=== PATIENT | male | born 1985 | race African-American/Black ===

== ENCOUNTER 2017-10-30 23:37 | Inpatient (IN) | payer MEDICAID ==
[~2017-10-30] VITALS: Ht 177.8 cm; Wt 76.8 kg
[2017-10-30 23:41] VITALS: BP 116/75
[2017-10-31] VITALS (7 sets, daily range): BP systolic 82–120; BP diastolic 42–80
[2017-10-31 01:57] LABS: BASO # 0.1 10*3/uL (0.0-0.1); BASO % 0.6 % (0.0-1.0); EOS # 0.2 10*3/uL (0.0-0.4); EOS % 1.4 % (1.0-4.0); HEMATOCRIT 37.4 % (42.0-52.0); HEMOGLOBIN 12.6 g/dl (14.0-18.0); LYMPH # 1.9 10*3/uL (1.3-4.4); LYMPH % 12.7 % (27.0-41.0); MEAN CELL VOLUME 93.7 fl (80.0-94.0); MEAN CORPUSCULAR HGB 31.6 pg (27.0-31.0); MEAN CORPUSCULAR HGB CONC 33.7 g/dl (33.0-37.0); MEAN PLATELET VOLUME 9.8 fl (9.6-12.3); MONO # 1.2 10*3/uL (0.1-1.0); MONO % 8.3 % (3.0-9.0); NEUT # 11.3 10*3/uL (2.3-7.9); NEUT % 76.5 % (47.0-73.0); PLATELET COUNT AUTOMATED 381 10*3/uL (130-400); RED BLOOD COUNT 3.99 10*6/uL (4.50-5.90); RED CELL DISTRI WIDTH 12.7 % (0-14.5); WHITE BLOOD COUNT 14.8 10*3/uL (4.8-10.8)
[2017-10-31 02:13] LABS: ALBUMIN 3.5 gm/dl (3.1-4.5); ALKALINE PHOSPHATASE 51 U/L (45-117); BUN 22 mg/dl (7-24); CHLORIDE 107 mmol/L (98-107); CREATININE 1.06 mg/dL (0.70-1.30); SGOT/AST 18 IU/L (3-35); SGPT/ALT 23 U/L (12-78); SODIUM 139 mmol/L (136-145); TOTAL PROTEIN 8.8 gm/dL (6.4-8.2)
[2017-10-31 07:14] LABS: BASO # 0.1 10*3/uL (0.0-0.1); BASO % 0.6 % (0.0-1.0); EOS # 0.2 10*3/uL (0.0-0.4); HEMATOCRIT 34.3 % (42.0-52.0); HEMOGLOBIN 11.4 g/dl (14.0-18.0); LYMPH % 17.4 % (27.0-41.0); MEAN CORPUSCULAR HGB 31.6 pg (27.0-31.0); MEAN CORPUSCULAR HGB CONC 33.2 g/dl (33.0-37.0); MEAN PLATELET VOLUME 10.2 fl (9.6-12.3); MONO # 1.3 10*3/uL (0.1-1.0); MONO % 11.8 % (3.0-9.0); NEUT # 7.7 10*3/uL (2.3-7.9); NEUT % 67.9 % (47.0-73.0); PLATELET COUNT AUTOMATED 339 10*3/uL (130-400); RED BLOOD COUNT 3.61 10*6/uL (4.50-5.90); RED CELL DISTRI WIDTH 12.7 % (0-14.5); WHITE BLOOD COUNT 11.3 10*3/uL (4.8-10.8)
[2017-10-31 07:30] LABS: BUN 21 mg/dl (7-24); CHLORIDE 107 mmol/L (98-107); CHOLESTEROL 116 mg/dL (<200); HDL CHOLESTEROL 41 mg/dl (40-60); LDL CHOLESTEROL 67 mg/dL (9-159); PHOSPHOROUS 3.3 mg/dL (2.5-4.9); SODIUM 139 mmol/L (136-145); TRIGLYCERIDES 42 mg/dl (<150); VLDL CHOLESTEROL 8 mg/dL (6-40)
[2017-10-31 07:37] LABS: THYROID STIM HORMONE (HS) 0.952 uIU/ml (0.358-4.75)
[2017-10-31] MEDS ORDERED: ALPRAZOLAM2 MG PO (07:41)
[2017-10-31] MEDS ORDERED: VENTOLIN 02.5 MG/3 M INH (07:41)
[2017-10-31] MEDS ORDERED: ABILIFY2 MG PO (07:42)
[2017-10-31] MEDS ORDERED: OXYCODONE HCL E30 MG PO (07:43)
[2017-10-31] MEDS ORDERED: CARAFATE1 G1 PO (07:43)
[2017-10-31] MEDS ORDERED: PROTONIX40 MG PO (07:43)
[2017-10-31] MEDS ORDERED: TOPAMAX200 MG PO (07:44)
[2017-10-31 07:46] LABS: ACT PARTIAL THROMBO TIME 26.4 SECONDS (20.8-31.5); INTERNATIONAL NORM RATIO 0.9 (2.0-3.5)
[2017-10-31 08:05] LABS: VITAMIN D, 25-HYDROXY 13.1 ng/mL (30-100)
[2017-10-31] MEDS ORDERED: ROXICODONE30 MG PO (11:21)
[2017-11-01] VITALS: BP 102/47
[2017-11-01 06:26] LABS: BASO # 0.1 10*3/uL (0.0-0.1); BASO % 0.9 % (0.0-1.0); EOS # 0.2 10*3/uL (0.0-0.4); EOS % 2.9 % (1.0-4.0); HEMATOCRIT 37.7 % (42.0-52.0); HEMOGLOBIN 12.4 g/dl (14.0-18.0); LYMPH # 1.6 10*3/uL (1.3-4.4); LYMPH % 22.7 % (27.0-41.0); MEAN CELL VOLUME 95.2 fl (80.0-94.0); MEAN CORPUSCULAR HGB 31.3 pg (27.0-31.0); MEAN CORPUSCULAR HGB CONC 32.9 g/dl (33.0-37.0); MEAN PLATELET VOLUME 9.9 fl (9.6-12.3); MONO # 0.7 10*3/uL (0.1-1.0); MONO % 9.9 % (3.0-9.0); NEUT # 4.4 10*3/uL (2.3-7.9); NEUT % 63.2 % (47.0-73.0); PLATELET COUNT AUTOMATED 338 10*3/uL (130-400); RED BLOOD COUNT 3.96 10*6/uL (4.50-5.90); RED CELL DISTRI WIDTH 12.8 % (0-14.5); WHITE BLOOD COUNT 6.9 10*3/uL (4.8-10.8)
[2017-11-01 06:53] LABS: ALBUMIN 3.2 gm/dl (3.1-4.5); ALKALINE PHOSPHATASE 40 U/L (45-117); BUN 18 mg/dl (7-24); CHLORIDE 107 mmol/L (98-107); CREATININE 1.18 mg/dL (0.70-1.30); POTASSIUM 3.7 mmol/L (3.5-5.1); SGOT/AST 11 IU/L (3-35); SGPT/ALT 24 U/L (12-78); SODIUM 138 mmol/L (136-145); TOTAL PROTEIN 8.8 gm/dL (6.4-8.2)
[2017-11-01 08:00] VITALS: BP 116/61
[2017-11-01 12:00] VITALS: BP 118/63
[2017-11-01 12:07] LABS: HEPATITIS B SURFACE AG Negative (Negative); HEPATITIS C VIRUS ANTIBODY 0.2 s/co (0.0-0.9); HIV 1+2 AB + HIV1 P24 AG Non Reactive (Non Reactive)
[2017-11-01 16:00] VITALS: BP 106/53
[2017-11-01 20:00] VITALS: BP 116/58
[2017-11-02] VITALS: BP 90/56
[2017-11-02 07:02] LABS: BASO # 0.1 10*3/uL (0.0-0.1); EOS # 0.2 10*3/uL (0.0-0.4); HEMOGLOBIN 12.2 g/dl (14.0-18.0); LYMPH # 1.6 10*3/uL (1.3-4.4); LYMPH % 31.1 % (27.0-41.0); MEAN CELL VOLUME 94.4 fl (80.0-94.0); MEAN CORPUSCULAR HGB 31.1 pg (27.0-31.0); MEAN PLATELET VOLUME 9.3 fl (9.6-12.3); MONO # 0.6 10*3/uL (0.1-1.0); MONO % 11.7 % (3.0-9.0); NEUT # 2.7 10*3/uL (2.3-7.9); NEUT % 51.8 % (47.0-73.0); PLATELET COUNT AUTOMATED 353 10*3/uL (130-400); RED BLOOD COUNT 3.92 10*6/uL (4.50-5.90); RED CELL DISTRI WIDTH 12.9 % (0-14.5); WHITE BLOOD COUNT 5.2 10*3/uL (4.8-10.8)
[2017-11-02 08:00] VITALS: BP 119/65
[2017-11-02] MEDS ORDERED: VITAMIN D-32000 UNIT PO (14:09)
[2017-11-02] MEDS ORDERED: ZYVOX600 MG PO (14:09)
[2017-11-02] MEDS ORDERED: DULOXETINE HCL30 MG PO (14:09)
[2017-11-02] MEDS ORDERED: OXYCONTIN10 M1 PO (14:11)
[2017-11-02] MEDS ORDERED: OXYCODONE HCL5 MG PO (14:11)
== END 2017-11-02 15:03 | disposition home or self-care (01) | DRG 603 ==
LOC: ED 23:37 → EDHOLD 10-31 02:34 → 5E 10-31 02:34
PROVIDERS: Internal Medicine; Internal Medicine Nephrology; Physician Assistant; Student in an Organized Health Care Education/Training Program
DX: L03.115 Cellulitis of right lower limb (principal); L97.819 Non-pressure chronic ulcer of other part of right lower leg with unspecified severity; L97.829 Non-pressure chronic ulcer of other part of left lower leg with unspecified severity; L03.116 Cellulitis of left lower limb; D64.9 Anemia, unspecified; D72.810 Lymphocytopenia; D72.829 Elevated white blood cell count, unspecified; E66.3 Overweight; F12.10 Cannabis abuse, uncomplicated; F41.9 Anxiety disorder, unspecified; G89.29 Other chronic pain; Z72.0 Tobacco use; Z79.51 Long term (current) use of inhaled steroids; Z71.6 Tobacco abuse counseling; Z87.19 Personal history of other diseases of the digestive system; Z90.89 Acquired absence of other organs; Z88.1 Allergy status to other antibiotic agents; Z88.2 Allergy status to sulfonamides; Z88.8 Allergy status to other drugs, medicaments and biological substances; Z91.018 Allergy to other foods; Z79.899 Other long term (current) drug therapy; Z68.24 Body mass index [BMI] 24.0-24.9, adult

== ENCOUNTER → 2017-11-03 | Outpatient (CLI) | payer MEDICAID ==
[~2017-11-03] MED LIST: ABILIFY2 MG PO; ALPRAZOLAM2 MG PO; Bactroban Oint22 GM T; CARAFATE1 G1 PO; DULOXETINE HCL30 MG PO; OXYCODONE HCL E30 MG PO; OXYCODONE HCL5 MG PO; OXYCONTIN10 M1 PO; PROTONIX40 MG PO; ROXICODONE30 MG PO; TOPAMAX200 MG PO; VENTOLIN 02.5 MG/3 M INH; VITAMIN D-32000 UNIT PO; ZYVOX600 MG PO
[2017-11-04 08:12] LABS: COMPLEMENT C4 001834 34 mg/dL (14-44); RHEUMATOID ARTHRITIS FACTOR <10.0 IU/mL (0.0-13.9)
[2017-11-04 14:09] LABS: ANTI-DSDNA ANTIBODIES 096339 1 IU/mL (0-9); ANTICHROMATIN ANTIBODIES <0.2 AI (0.0-0.9)
[2017-11-04 22:06] LABS: CCP ANTIBODIES IGG/IGA 7 units (0-19)
== END | disposition home or self-care (01) ==
LOC: RESCLI 07:57
PROVIDERS: Internal Medicine
DX: Z09 Encounter for follow-up examination after completed treatment for conditions other than malignant neoplasm (principal); K21.9 Gastro-esophageal reflux disease without esophagitis; I77.6 Arteritis, unspecified; F32.4 Major depressive disorder, single episode, in partial remission; F41.9 Anxiety disorder, unspecified; G89.29 Other chronic pain; L03.818 Cellulitis of other sites; E55.9 Vitamin D deficiency, unspecified; J45.20 Mild intermittent asthma, uncomplicated; F32.9 Major depressive disorder, single episode, unspecified; F17.210 Nicotine dependence, cigarettes, uncomplicated; R11.0 Nausea; R56.9 Unspecified convulsions; Z88.2 Allergy status to sulfonamides; Z88.8 Allergy status to other drugs, medicaments and biological substances

== ENCOUNTER 2017-11-04 20:32 | Inpatient (IN) | payer MEDICAID ==
[~2017-11-04] VITALS: Ht 175.2 cm; Wt 79.0 kg
--- NOTE | ~2017-11-04 | PR ---
[place], [place] PROGRESS NOTE NAME: CONNIE NEAL UNIT #: [id number] ROOM: 422 DOCTOR: ALYSSA CLARK DPM BIRTHDATE: [birth year] DOS: 11/06/2017 SUBJECTIVE: This patient is seen for followup of wounds on both legs. He has been hospitalized in the past for cellulitis of his legs. He states he still has open wounds, still has some pain in the legs. He is asking about adjusting his pain medication. OBJECTIVE: Upon lower extremity examination, pedal pulses are mildly decreased. There is mild dependent edema noted diffusely throughout both lower extremities. Small superficial wounds are noted in the posterior lower calf area with minimal serous drainage. No purulent drainage or malodor. These wounds are clean and granular with no signs of abscess, no signs of foul odor, no localized fluctuance or edema. His arterial studies of the lower extremities came back normal waveforms. No plaques identified. ASSESSMENT: Chronic ulcerations, bilateral lower legs with improving cellulitis. PLAN: Evaluation and management. Continue with dressing changes. Continue with IV antibiotics per Infectious Disease. We would recommend follow up at the wound care center, possibly biopsying the wounds, but right now continue with conservative care. No surgical debridement is needed. ALYSSA CLARK DPM CM:SHANDRA [id number] ALYSSA CLARK DPM 11/07/17 0700 interface
--- NOTE | ~2017-11-04 | CON ---
[place], [place] REPORT OF CONSULTATION NAME: CONNIE NEAL UNIT #: [id number] ROOM: 422 DOCTOR: MAURILIO CAMPOS DPM BIRTHDATE: [birth year] DOS: 11/05/2017 SUBJECTIVE: The patient presents as a 31-year-old male with chief complaint of wounds of both legs. The patient was hospitalized for multiple infected ulcerations of both legs on 10/31/2017. The patient was evaluated by General Surgery at that time. PAST MEDICAL HISTORY: Anxiety, chronic pain, history of aneurysm of the brain, history of avascular necrosis, capital femoral epiphysis, history of bilateral AVN of the hips, GI bleed. PAST SURGICAL HISTORY: Appendectomy, gastric surgery, core decompression, hip surgery. SOCIAL HISTORY: Illicit drug use, marijuana abuse, rarely consumes alcohol, tobacco abuse, smoking 2 packs daily, starting at age 15. FAMILY HISTORY: Father at age 36. Mother age 49. ALLERGIES: NSAIDS, SULFA, ASPIRIN, AZITHROMYCIN, KEFLEX, CLINDAMYCIN, DOXYCYCLINE, TOMATOES, TRAMADOL, VANCOMYCIN. PHYSICAL EXAMINATION: EXTREMITIES: Lower extremity examination: Diminished pedal pulses bilateral. There are open seeping wounds, bilateral lower extremities. No signs of purulent drainage or foul odor, serous drainage noted. Minimal edema noted. ASSESSMENT: Ulcerations, bilateral lower extremity. PLAN: Evaluation and management. Ordered venous and arterial Dopplers of bilateral lower extremity. Ordered Bactroban dressings, bilateral. Agree that the patient may need biopsy of the wounds for definitive diagnosis of etiology. The patient will be seen again tomorrow by Dr. Camargo. Discussed the case with Dr. Camargo via telephone and we will recheck the patient tomorrow. MAURILIO CAMPOS DPM CM:CONSTR:REPORT OF CONSULTATION [id number] 11/06/17 0143 interface
[2017-11-04 20:32] VITALS: BP 136/79
[~2017-11-04 20:32] MED LIST changes: -Bactroban Oint22 GM T
[2017-11-04 22:11] LABS: BASO # 0.1 10*3/uL (0.0-0.1); BASO % 0.8 % (0.0-1.0); EOS # 0.4 10*3/uL (0.0-0.4); EOS % 5.3 % (1.0-4.0); HEMATOCRIT 38.2 % (42.0-52.0); HEMOGLOBIN 12.9 g/dl (14.0-18.0); LYMPH % 27.8 % (27.0-41.0); MEAN CORPUSCULAR HGB 31.1 pg (27.0-31.0); MEAN CORPUSCULAR HGB CONC 33.8 g/dl (33.0-37.0); MEAN PLATELET VOLUME 9.5 fl (9.6-12.3); MONO # 0.7 10*3/uL (0.1-1.0); MONO % 10.3 % (3.0-9.0); NEUT % 55.5 % (47.0-73.0); PLATELET COUNT AUTOMATED 371 10*3/uL (130-400); RED BLOOD COUNT 4.15 10*6/uL (4.50-5.90); RED CELL DISTRI WIDTH 12.7 % (0-14.5); WHITE BLOOD COUNT 7.2 10*3/uL (4.8-10.8)
[2017-11-04 22:27] LABS: ALBUMIN 3.5 gm/dl (3.1-4.5); ALKALINE PHOSPHATASE 59 U/L (45-117); BUN 26 mg/dl (7-24); CHLORIDE 106 mmol/L (98-107); CREATININE 1.32 mg/dL (0.70-1.30); POTASSIUM 3.9 mmol/L (3.5-5.1); SGOT/AST 18 IU/L (3-35); SGPT/ALT 27 U/L (12-78); SODIUM 138 mmol/L (136-145); TOTAL PROTEIN 8.9 gm/dL (6.4-8.2)
[2017-11-04 22:30] VITALS: BP 116/70
[2017-11-05] VITALS: BP 116/70
[2017-11-05 08:00] VITALS: BP 114/65
[2017-11-05 08:04] LABS: BASO # 0.1 10*3/uL (0.0-0.1); BASO % 0.9 % (0.0-1.0); EOS # 0.4 10*3/uL (0.0-0.4); EOS % 6.2 % (1.0-4.0); HEMATOCRIT 37.3 % (42.0-52.0); HEMOGLOBIN 12.4 g/dl (14.0-18.0); LYMPH # 2.7 10*3/uL (1.3-4.4); MEAN CELL VOLUME 93.7 fl (80.0-94.0); MEAN CORPUSCULAR HGB 31.2 pg (27.0-31.0); MEAN CORPUSCULAR HGB CONC 33.2 g/dl (33.0-37.0); MEAN PLATELET VOLUME 9.7 fl (9.6-12.3); MONO # 0.8 10*3/uL (0.1-1.0); MONO % 12.2 % (3.0-9.0); NEUT # 2.6 10*3/uL (2.3-7.9); NEUT % 39.4 % (47.0-73.0); PLATELET COUNT AUTOMATED 337 10*3/uL (130-400); RED BLOOD COUNT 3.98 10*6/uL (4.50-5.90); RED CELL DISTRI WIDTH 12.6 % (0-14.5); WHITE BLOOD COUNT 6.5 10*3/uL (4.8-10.8)
[2017-11-05 08:21] LABS: BUN 21 mg/dl (7-24); CHLORIDE 111 mmol/L (98-107); CREATININE 1.27 mg/dL (0.70-1.30); PHOSPHOROUS 3.2 mg/dL (2.5-4.9); POTASSIUM 3.8 mmol/L (3.5-5.1); SODIUM 141 mmol/L (136-145)
[2017-11-05 12:00] VITALS: BP 116/64
[2017-11-05 16:00] VITALS: BP 92/44
[2017-11-05 20:00] VITALS: BP 121/67
[2017-11-06] VITALS: BP 110/56
[2017-11-06 07:17] LABS: BASO # 0.1 10*3/uL (0.0-0.1); BASO % 1.1 % (0.0-1.0); EOS # 0.4 10*3/uL (0.0-0.4); EOS % 7.6 % (1.0-4.0); HEMATOCRIT 38.4 % (42.0-52.0); HEMOGLOBIN 12.6 g/dl (14.0-18.0); LYMPH # 2.3 10*3/uL (1.3-4.4); LYMPH % 41.1 % (27.0-41.0); MEAN CELL VOLUME 95.3 fl (80.0-94.0); MEAN CORPUSCULAR HGB 31.3 pg (27.0-31.0); MEAN CORPUSCULAR HGB CONC 32.8 g/dl (33.0-37.0); MEAN PLATELET VOLUME 9.3 fl (9.6-12.3); MONO # 0.7 10*3/uL (0.1-1.0); MONO % 11.9 % (3.0-9.0); NEUT # 2.1 10*3/uL (2.3-7.9); NEUT % 38.1 % (47.0-73.0); PLATELET COUNT AUTOMATED 314 10*3/uL (130-400); RED BLOOD COUNT 4.03 10*6/uL (4.50-5.90); RED CELL DISTRI WIDTH 12.9 % (0-14.5); WHITE BLOOD COUNT 5.6 10*3/uL (4.8-10.8)
[2017-11-06 07:53] LABS: BUN 18 mg/dl (7-24); CHLORIDE 108 mmol/L (98-107); CREATININE 1.33 mg/dL (0.70-1.30); POTASSIUM 3.7 mmol/L (3.5-5.1); SODIUM 140 mmol/L (136-145)
[2017-11-06 08:00] VITALS: BP 109/60
[2017-11-06 12:00] VITALS: BP 107/65
[2017-11-06 16:00] VITALS: BP 106/62
[2017-11-06] MEDS ORDERED: OXYCONTIN10 M1 PO (16:07)
[2017-11-06] MEDS ORDERED: Bactroban Oint22 GM T (16:07)
== END 2017-11-06 17:02 | disposition home or self-care (01) | DRG 603 ==
LOC: ED 20:32 → 4E 21:48 → EDHOLD 21:48 → 4E 21:48
PROVIDERS: Emergency Medicine Emergency Medical Services; Internal Medicine; Internal Medicine Nephrology
DX: L03.116 Cellulitis of left lower limb (principal); E83.41 Hypermagnesemia; L97.818 Non-pressure chronic ulcer of other part of right lower leg with other specified severity; L97.828 Non-pressure chronic ulcer of other part of left lower leg with other specified severity; Z84.1 Family history of disorders of kidney and ureter; L03.115 Cellulitis of right lower limb; L08.9 Local infection of the skin and subcutaneous tissue, unspecified; D64.9 Anemia, unspecified; L98.491 Non-pressure chronic ulcer of skin of other sites limited to breakdown of skin; F17.210 Nicotine dependence, cigarettes, uncomplicated; R79.82 Elevated C-reactive protein (CRP); E66.3 Overweight; F41.9 Anxiety disorder, unspecified; G89.29 Other chronic pain; Z88.2 Allergy status to sulfonamides; Z88.8 Allergy status to other drugs, medicaments and biological substances; Z88.6 Allergy status to analgesic agent; Z79.899 Other long term (current) drug therapy; Z90.49 Acquired absence of other specified parts of digestive tract; Z80.0 Family history of malignant neoplasm of digestive organs; Z68.25 Body mass index [BMI] 25.0-25.9, adult

== ENCOUNTER → 2017-11-10 | Outpatient (CLI) | payer MEDICAID ==
[~2017-11-10] MED LIST changes: +Bactroban Oint22 GM T
== END | disposition home or self-care (01) ==
LOC: RESCLI 02:34
DX: K21.9 Gastro-esophageal reflux disease without esophagitis (principal); I77.6 Arteritis, unspecified; A53.0 Latent syphilis, unspecified as early or late; F41.9 Anxiety disorder, unspecified; G89.29 Other chronic pain; E55.9 Vitamin D deficiency, unspecified; F32.4 Major depressive disorder, single episode, in partial remission; M87.051 Idiopathic aseptic necrosis of right femur; M87.052 Idiopathic aseptic necrosis of left femur; L03.818 Cellulitis of other sites; R11.0 Nausea; R56.9 Unspecified convulsions; Z72.0 Tobacco use; Z71.6 Tobacco abuse counseling; Z88.2 Allergy status to sulfonamides; Z88.8 Allergy status to other drugs, medicaments and biological substances

== ENCOUNTER 2017-11-16 21:47 | Emergency (ER) | payer MEDICAID ==
[~2017-11-16] VITALS: Ht 177.8 cm; Wt 79.4 kg
[2017-11-16 23:03] LABS: BASO % 0.4 % (0.0-1.0); EOS # 0.5 10*3/uL (0.0-0.4); EOS % 5.7 % (1.0-4.0); HEMATOCRIT 37.2 % (42.0-52.0); HEMOGLOBIN 12.5 g/dl (14.0-18.0); LYMPH # 2.2 10*3/uL (1.3-4.4); MEAN CORPUSCULAR HGB 31.3 pg (27.0-31.0); MEAN CORPUSCULAR HGB CONC 33.6 g/dl (33.0-37.0); MEAN PLATELET VOLUME 9.3 fl (9.6-12.3); MONO # 0.6 10*3/uL (0.1-1.0); MONO % 7.8 % (3.0-9.0); NEUT # 4.7 10*3/uL (2.3-7.9); NEUT % 58.9 % (47.0-73.0); PLATELET COUNT AUTOMATED 236 10*3/uL (130-400); RED CELL DISTRI WIDTH 13.6 % (0-14.5)
[2017-11-16 23:18] LABS: ALBUMIN 3.5 gm/dl (3.1-4.5); ALKALINE PHOSPHATASE 39 U/L (45-117); BUN 18 mg/dl (7-24); CHLORIDE 111 mmol/L (98-107); CREATININE 1.02 mg/dL (0.70-1.30); POTASSIUM 3.6 mmol/L (3.5-5.1); SGOT/AST 15 IU/L (3-35); SGPT/ALT 19 U/L (12-78); SODIUM 144 mmol/L (136-145); TOTAL PROTEIN 7.7 gm/dL (6.4-8.2)
[2017-11-16] MEDS ORDERED: ROXICODONE30 MG PO (23:35)
== END 2017-11-17 08:45 | disposition left against medical advice (07) ==
LOC: ED 21:47
PROVIDERS: Nurse Practitioner
DX: L30.8 Other specified dermatitis (principal); F12.10 Cannabis abuse, uncomplicated; F17.200 Nicotine dependence, unspecified, uncomplicated; G89.29 Other chronic pain; R79.82 Elevated C-reactive protein (CRP); E83.41 Hypermagnesemia; D64.9 Anemia, unspecified; E66.3 Overweight; L98.498 Non-pressure chronic ulcer of skin of other sites with other specified severity; L08.9 Local infection of the skin and subcutaneous tissue, unspecified; Z90.49 Acquired absence of other specified parts of digestive tract; Z98.890 Other specified postprocedural states; Z98.84 Bariatric surgery status; Z79.899 Other long term (current) drug therapy; Z88.6 Allergy status to analgesic agent; Z88.2 Allergy status to sulfonamides; Z88.1 Allergy status to other antibiotic agents

== ENCOUNTER → 2017-11-17 | Outpatient (CLI) | payer OTHER | END | disposition home or self-care (01) | LOC: RESCLI 03:14 | DX: I77.6 Arteritis, unspecified (principal); A53.0 Latent syphilis, unspecified as early or late; F41.9 Anxiety disorder, unspecified; G89.29 Other chronic pain; K21.9 Gastro-esophageal reflux disease without esophagitis; E55.9 Vitamin D deficiency, unspecified; F32.4 Major depressive disorder, single episode, in partial remission; R56.9 Unspecified convulsions; L03.818 Cellulitis of other sites; M87.051 Idiopathic aseptic necrosis of right femur; M87.052 Idiopathic aseptic necrosis of left femur; Z72.0 Tobacco use; Z90.49 Acquired absence of other specified parts of digestive tract ==

== ENCOUNTER → 2017-11-24 | Outpatient (CLI) | payer OTHER | END | disposition home or self-care (01) | LOC: RESCLI 03:31 → LAB 03:31 → RESCLI 13:54 | DX: L97.921 Non-pressure chronic ulcer of unspecified part of left lower leg limited to breakdown of skin (principal); J84.10 Pulmonary fibrosis, unspecified; F41.9 Anxiety disorder, unspecified; A53.0 Latent syphilis, unspecified as early or late; G89.4 Chronic pain syndrome; Z79.899 Other long term (current) drug therapy; Z88.2 Allergy status to sulfonamides; F32.9 Major depressive disorder, single episode, unspecified ==